=== PATIENT | female | born 1970 | race Caucasian/White ===

== ENCOUNTER → 2017-06-23 | Outpatient (CLI) | payer OTHER | LOC: FIMAGING 16:25 | PROVIDERS: ATTEND Registered Nurse | DX: M54.9 Dorsalgia, unspecified (principal); R50.9 Fever, unspecified; Z90.49 Acquired absence of other specified parts of digestive tract ==

== ENCOUNTER 2018-01-01 11:29 | Emergency (ER) | payer MEDICAID ==
[2018-01-01 11:53] VITALS: RESP 16; O2SAT 98
[2018-01-01] MEDS ORDERED: HYDROCOD/APAP 5/325 PREPACK#6 BTL TAKEHOME ONE (13:21)
--- NOTE | 2018-01-01 13:24 | EDPHY ---
H & P Stated Complaint: RIGHT SIDED FACIAL SWELLING AND HEARING LOSS Time Seen by Provider: 01/01/18 13:10 HPI/ROS: CHIEF COMPLAINT: Left jaw pain HISTORY OF PRESENT ILLNESS: The patient is a 47-year-old female who presented yesterday to the Urgent Care complaining of left-sided jaw and ear pain and swelling. She was diagnosed with mastoiditis and cerumen impaction. She did not have any type of otitis media or otitis externa. She did not have any imaging. She was given a dose of Rocephin and then a prescription for Augmentin. She states that the swelling has significantly improved today but that she is still having pain. She took ibuprofen this morning without relief. No nausea vomiting. No headache. No fever. No no dental infection. No trauma. REVIEW OF SYSTEMS: Constitutional: denies: chills, fever, recent illness, recent injury EENTM: See HPI denies: blurred vision, double vision, nose congestion Respiratory: denies: cough, shortness of breath Cardiac: denies: chest pain, irregular heart rate, lightheadedness, palpitations Gastrointestinal/Abdominal: denies: abdominal pain, diarrhea, nausea, vomiting, blood streaked stools Genitourinary: denies: dysuria, frequency, hematuria, pain Musculoskeletal: denies: joint pain, muscle pain Skin: denies: lesions, rash, jaundice, bruising Neurological: denies: headache, numbness, paresthesia, tingling, dizziness, weakness Hematologic/Lymphatic: denies: blood clots, easy bleeding, easy bruising Immunologic/allergic: denies: HIV/AIDS, transplant EXAM: GENERAL: Well-appearing, well-nourished and in no acute distress. HEAD: Atraumatic, normocephalic. EYES: Pupils equal round and reactive to light, extraocular movements intact, sclera anicteric, conjunctiva are normal. ENT: Pain to left parietal gland region, no obvious swelling or erythema. No obvious dental abnormalities. TMs normal, nares patent, oropharynx clear without exudates. Moist mucous membranes. NECK: Normal range of motion, supple without lymphadenopathy or JVD. LUNGS: Breath sounds clear to auscultation bilaterally and equal. No wheezes rales or rhonchi. HEART: Regular rate and rhythm without murmurs, rubs or gallops. ABDOMEN: Soft, nontender, normoactive bowel sounds. No guarding, no rebound. No masses appreciated. BACK: No CVA tenderness, no spinal tenderness, step-offs or deformities EXTREMITIES: Normal range of motion, no pitting or edema. No clubbing or cyanosis. NEUROLOGICAL: Cranial nerves II through XII grossly intact. Normal speech, normal gait. 5/5 strength, normal movement in all extremities, normal sensation PSYCH: Normal mood, normal affect. SKIN: Warm, dry, normal turgor, no visible rashes or lesions. Source: Patient Exam Limitations: No limitations - Personal History LMP (Females 10-55): Unknown Current Tetanus/Diphtheria Vaccine: Yes Current Tetanus Diphtheria and Acellular Pertussis (TDAP): Yes - Medical/Surgical History Hx Asthma: No Hx Chronic Respiratory Disease: No Hx Diabetes: No Hx Cardiac Disease: No Hx Renal Disease: No Hx Cirrhosis: No Hx Alcoholism: No Hx HIV/AIDS: No Hx Splenectomy or Spleen Trauma: No Other PMH: HEP C - Family History Significant Family History: No pertinent family hx - Social History Smoking Status: Never smoked Alcohol Use: Sober Drug Use: None Constitutional: Initial Vital Signs Temperature (C) 36.9 C 01/01/18 11:51 Heart Rate 72 01/01/18 11:51 Respiratory Rate 16 01/01/18 11:51 Blood Pressure 147/93 H 01/01/18 11:51 O2 Sat (%) 98 01/01/18 11:51 O2 Delivery Mode Room Air Allergies/Adverse Reactions: Sulfa (Sulfonamide Antibiotics) Allergy (Intermediate, Verified 02/26/10 20:17) Hives hydromorphone [Hydromorphone] Adverse Reaction (Severe, Verified 02/28/10 14:11) Itching Home Medications: Medication Instructions Recorded Flexeril 10 MG (*) 01/01/18 Medical Decision Making ED Course/Re-evaluation: The patient is well-appearing and is here complaining about pain. She has not had a fever. Her symptoms overall have improved since yesterday. I somewhat doubt the diagnosis of mastoiditis. She does not have any bony pain behind her ear and no sign of ear infection. I did offer to perform CT scan to evaluate further . She declines this. I suspect that she more has a parotiditis or parotid duct stone that has now cleared. Overall her symptoms have improved. She is asking for better pain control. I will prescribe Vicodin. She complains of aches and pains in her joints. She may have some degree of serum sickness. We agreed to follow up in 24 hr for re-evaluation. Differential Diagnosis: Partial list of the Differential diagnosis considered include but were not limited to; parotiditis, parotid duct stone, serum sickness and although unlikely based on the history and physical exam, I also considered mastoiditis, abscess, sepsis, meningitis. I discussed these differential diagnoses and the plan with the patient as well as the usual and expected course. The patient understands that the diagnosis is provisional and that in medicine we are not always correct and that further workup is often warranted. Usual and customary warnings were given. All of the patient's questions were answered. The patient was instructed to return to the emergency department should the symptoms at all worsen or return, otherwise to followup with the physician as we discussed. - Data Points Medications Given: Discontinued Medications Hydrocodone Bitart/Acetaminophen ([place] 5/325mg Prepack#6) 1 btl TAKEJOSEE EDNOW ONE Stop: 01/01/18 13:22 Last Admin: 01/01/18 13:49 Dose: 1 btl Departure - Departure Disposition: Home, Routine, Self-Care Clinical Impression: Acute parotitis Condition: Fair Instructions: Hydrocodone/Acetaminophen (By mouth) Referrals: NONE *PRIMARY CARE P,. [Primary Care Provider] - 1 day without fail ED,PHYSICIAN ONDUTY [Medical Doctor] - 1 day, if not improved
[2018-01-01 13:51] VITALS: BP 137/96; PULSE 62; TEMP 98.2
== END 2018-01-01 13:50 | disposition home or self-care (01) ==
DX: K11.21 Acute sialoadenitis (principal)

== ENCOUNTER 2019-02-17 19:35 | Inpatient (IN) | payer MEDICAID ==
--- NOTE | 2019-02-17 19:40 | EDPHY ---
H & P Time Seen by Provider: 02/17/19 19:39 HPI/ROS: CHIEF COMPLAINT: Right upper quadrant and epigastric pain HISTORY OF PRESENT ILLNESS: The patient presents the ED with complaints of severe right upper quadrant epigastric pain. The patient has a history of fibromyalgia and takes gabapentin and Cymbalta at baseline. She denies prior history of abdominal pain associated with her fibromyalgia. The patient does have a history of cholecystectomy secondary to biliary dyskinesia in 2009. The patient also underwent an appendectomy at that point time. The patient does report associated nausea and multiple episodes of vomiting. The patient denies hematuria or dysuria. She has no complaints of lower abdominal pain. Patient does have a history of hepatitis C. She does report that she has had fairly stable liver function tests. REVIEW OF SYSTEMS: A comprehensive 10 point review of systems is otherwise negative aside from elements mentioned in the history of present illness. Source: Patient Exam Limitations: No limitations - Medical/Surgical History Hx Asthma: No Hx Chronic Respiratory Disease: No Hx Diabetes: No Hx Cardiac Disease: No Hx Renal Disease: No Hx Cirrhosis: No Hx Alcoholism: No Hx HIV/AIDS: No Hx Splenectomy or Spleen Trauma: No Other PMH: HEP C, prior cholecystectomy, fibromyalgia - Family History Significant Family History: No pertinent family hx - Social History Smoking Status: Never smoked - Physical Exam Exam: General Appearance: Slightly obese female, appears uncomfortable Eyes: Pupils equal and round no pallor or injection ENT, Mouth: Mucous membranes moist Respiratory: There are no retractions, lungs are clear to auscultation Cardiovascular: Regular rate and rhythm Gastrointestinal: Marked tenderness to palpation in the epigastrium and right upper quadrant, Neurological: A&O, normal motor function, normal sensory exam, normal cranial nerves Skin: Warm and dry, no rashes Musculoskeletal: Neck is supple nontender Extremities: symmetrical, full range of motion Psychiatric: Patient is oriented X 3, there is no agitation Constitutional: Initial Vital Signs Temperature (C) 37.2 C 02/17/19 19:40 Heart Rate 102 H 02/17/19 19:40 Respiratory Rate 20 02/17/19 19:40 Blood Pressure 152/108 H 02/17/19 19:40 O2 Sat (%) 100 02/17/19 19:40 O2 Delivery Mode Nasal Cannula O2 (L/minute) 2 Allergies/Adverse Reactions: Sulfa (Sulfonamide Antibiotics) Allergy (Intermediate, Verified 02/17/19 19:43) Hives hydromorphone [Hydromorphone] Adverse Reaction (Severe, Verified 02/17/19 19:43) Itching Home Medications: Medication Instructions Recorded DULoxetine [Cymbalta 20 MG (RX)] 20 mg PO DAILY@07 02/17/19 Gabapentin [Neurontin 300 MG (*)] 300 mg PO DAILY@1900 02/17/19 Medical Decision Making - Diagnostics Imaging Results: Imaging Impressions Abdomen CT 02/17/19 19:55 Impression: Possible early ascending colonic obstruction related to either a kink or adhesion. Doubt twist or mass. A transition point is on axial image 133 series 4 , sagittal reconstruction image 157 and coronal reconstruction image 64. Results discussed with Dr. Dao Roldan at 8:43 PM. General information for patients regarding this examination can be found at [email or web address]. If you have questions or comments about this report, please contact me at (hospital) or [phone] (cell). ED Course/Re-evaluation: The patient presents the ED with acute abdominal pain, nausea and vomiting. The patient's symptoms began earlier today. Prior surgical history is no worthy for appendectomy and cholecystectomy. The patient was noted to have marked tenderness to palpation in the right upper quadrant epigastrium. The patient had an IV established. I verified a normal creatinine in ordered a stat CT scan of the abdomen pelvis which demonstrates large bowel obstruction with a transition point in the right upper quadrant. I re-evaluated the patient again at 9:00 p.m. and she is still quite tender to palpation. Consultation is made with Dr. uLis Damico from General surgery who will evaluate the patient in the emergency department to determine next steps in the patient's workup. Dr. Damico questions whether the patient's presentation may be from colitis. His plan will be to start antibiotics this evening and follow her exam. She will be admitted to his service this evening. Differential Diagnosis: Differential diagnosis considered includes bowel obstruction, choledocholithiasis, pancreatitis, nephrolithiasis, peptic ulcer disease - Data Points Laboratory Results: Laboratory Results 02/17/19 19:48 02/17/19 19:48 02/17/19 02/17/19 02/17/19 19:51 19:48 19:48 WBC RBC Hgb POC Hgb 16.0 gm/dL gm/dL (12.6-16.3) Hct POC Hct 47 % % (38-47) MCV MCH MCHC RDW Plt Count MPV Neut % (Auto) Lymph % (Auto) [place] % (Auto) Eos % (Auto) Baso % (Auto) Nucleat RBC Rel Count Absolute Neuts (auto) Absolute Lymphs (auto) Absolute Monos (auto) Absolute Eos (auto) Absolute Basos (auto) Absolute Nucleated RBC Immature Gran % Immature Gran # POC Sodium 140 mEq/L mEq/L (135-145) Sodium 134 mEq/L L mEq/L (135-145) POC Potassium 3.7 mEq/L mEq/L (3.3-5.0) Potassium 4.1 mEq/L mEq/L (3.5-5.2) POC Chloride 103 mEq/L mEq/L (97-110) Chloride 103 mEq/L mEq/L (97-110) Carbon Dioxide 20 mEq/l L mEq/l (22-31) POC Total CO2 19 mEq/L L mEq/L (22-31) Anion Gap 11 mEq/L mEq/L (6-14) POC BUN 12 mg/dL mg/dL (7-23) BUN 13 mg/dL mg/dL (7-23) Creatinine 1.0 mg/dL mg/dL (0.6-1.0) POC Creatinine 1.0 mg/dL mg/dL (0.6-1.0) Estimated GFR 59 Glucose 116 mg/dL H mg/dL (70-100) POC Glucose 117 mg/dL H mg/dL (70-100) Calcium 9.9 mg/dL mg/dL (8.5-10.4) Total Bilirubin 0.7 mg/dL mg/dL (0.1-1.4) Conjugated Bilirubin 0.3 mg/dL mg/dL (0.0-0.5) Unconjugated Bilirubin 0.4 mg/dL mg/dL (0.0-1.1) AST 24 IU/L IU/L (14-46) ALT 41 IU/L IU/L (9-52) Alkaline Phosphatase 65 IU/L IU/L (38-126) Total Protein 7.6 g/dL g/dL (6.3-8.2) Albumin 4.5 g/dL g/dL (3.5-5.0) Lipase 124 IU/L IU/L (23-300) Beta HCG, Qual NEGATIVE 02/17/19 19:48 WBC 13.43 10^3/uL H 10^3/uL (3.80-9.50) RBC 5.18 10^6/uL 10^6/uL (4.18-5.33) Hgb 15.6 g/dL g/dL (12.6-16.3) POC Hgb Hct 44.5 % % (38.0-47.0) POC Hct MCV 85.9 fL fL (81.5-99.8) MCH 30.1 pg pg (27.9-34.1) MCHC 35.1 g/dL g/dL (32.4-36.7) RDW 12.1 % % (11.5-15.2) Plt Count 268 10^3/uL 10^3/uL (150-400) MPV 10.3 fL fL (8.7-11.7) Neut % (Auto) 87.7 % H % (39.3-74.2) Lymph % (Auto) 7.9 % L % (15.0-45.0) [place] % (Auto) 3.0 % L % (4.5-13.0) Eos % (Auto) 0.9 % % (0.6-7.6) Baso % (Auto) 0.3 % % (0.3-1.7) Nucleat RBC Rel Count 0.0 % % (0.0-0.2) Absolute Neuts (auto) 11.78 10^3/uL H 10^3/uL (1.70-6.50) Absolute Lymphs (auto) 1.06 10^3/uL 10^3/uL (1.00-3.00) Absolute Monos (auto) 0.40 10^3/uL 10^3/uL (0.30-0.80) Absolute Eos (auto) 0.12 10^3/uL 10^3/uL (0.03-0.40) Absolute Basos (auto) 0.04 10^3/uL 10^3/uL (0.02-0.10) Absolute Nucleated RBC 0.00 10^3/uL 10^3/uL (0-0.01) Immature Gran % 0.2 % % (0.0-1.1) Immature Gran # 0.03 10^3/uL 10^3/uL (0.00-0.10) POC Sodium Sodium POC Potassium Potassium POC Chloride Chloride Carbon Dioxide POC Total CO2 Anion Gap POC BUN BUN Creatinine POC Creatinine Estimated GFR Glucose POC Glucose Calcium Total Bilirubin Conjugated Bilirubin Unconjugated Bilirubin AST ALT Alkaline Phosphatase Total Protein Albumin Lipase Beta HCG, Qual Medications Given: Discontinued Medications Fentanyl (Sublimaze) 100 mcg IVP EDNOW ONE Stop: 02/17/19 19:44 Last Admin: 02/17/19 19:50 Dose: 100 mcg Sodium Chloride (Ns) 1,000 mls @ 0 mls/hr IV EDNOW ONE; Wide Open PRN Reason: Protocol Stop: 02/17/19 19:44 Last Admin: 02/17/19 19:50 Dose: 1,000 mls Ondansetron HCl (Zofran) 4 mg IVP EDNOW ONE Stop: 02/17/19 19:44 Last Admin: 02/17/19 19:50 Dose: 4 mg Point of Care Test Results: Chemistry 02/17/19 19:51 POC Sodium 140 mEq/L mEq/L (135-145) POC Potassium 3.7 mEq/L mEq/L (3.3-5.0) POC Chloride 103 mEq/L mEq/L (97-110) POC Total CO2 19 mEq/L L mEq/L (22-31) POC BUN 12 mg/dL mg/dL (7-23) POC Creatinine 1.0 mg/dL mg/dL (0.6-1.0) POC Glucose 117 mg/dL H mg/dL (70-100) ISTAT H&H 02/17/19 19:51 POC Hgb 16.0 gm/dL gm/dL (12.6-16.3) POC Hct 47 % % (38-47) Departure - Departure Disposition: [facility] Clinical Impression: Colitis Condition: Fair
[2019-02-17] MEDS ORDERED: NS 1,000 ML IV ONE (19:43)
[2019-02-17] MEDS ORDERED: fentaNYL 100 MCG/2 ML INJ IVP ONE (19:43)
[2019-02-17] MEDS ORDERED: ONDANSETRON 4 MG/2 ML VIAL IVP ONE (19:43)
[2019-02-17] MEDS ORDERED: IOPAMIDOL (ISOVUE-300) 100 ML BTL ONE (19:58)
[2019-02-17 19:59] LABS: PLATELET COUNT 268 10^3/uL (150-400)
[2019-02-17] MEDS ORDERED: PROMETHAZINE HCL 25 MG/ML INJ IVP PRN (21:29)
[2019-02-17] MEDS ORDERED: ONDANSETRON 4 MG/2 ML VIAL IVP PRN (21:29)
--- NOTE | 2019-02-17 21:49 | PDGENHP ---
History and Physical - Chief Complaint abdominal pain, nausea, vomiting, diarrhea - History of Present Illness Otherwise helthy 48yo F presents with acute onset RUQ pain. Briefly, patient was feeling well until earlier today began to have progressive nausea, vomiting and diarrhea. This persisted and she began to have worsening RUQ pain. Pain is described as burning and radiating to her R shoulder. Rated as 8/10 in intensity at its worst. Has never had pain like this previously. History Information - Allergies/Home Medication List Allergies/Adverse Reactions: Sulfa (Sulfonamide Antibiotics) Allergy (Intermediate, Verified 02/17/19 19:43) Hives hydromorphone [Hydromorphone] Adverse Reaction (Severe, Verified 02/17/19 19:43) Itching Home Medications: DULoxetine [Cymbalta 20 MG (RX)] 20 mg PO DAILY@07 02/17/19 [Last Taken 02/17/19 ] Gabapentin [Neurontin 300 MG (*)] 300 mg PO DAILY@1900 02/17/19 [Last Taken ] I have personally reviewed and updated: family history, medical history, social history, surgical history Past Medical History: fibromyalgia, hepatitis C - Surgical History Reports: appendectomy, cholecystectomy Additional surgical history: tubal ligation - Family History Additional family history: no Hx of colon ca or IBD - Social History Smoking Status: Never smoked Review of Systems Review of Systems: ROS: 10pt was reviewed & negative except for what was stated in HPI & below Physical Exam Physical Exam: Temp Pulse Resp BP Pulse Ox 37.2 C 88 18 134/89 H 99 02/17/19 19:40 02/17/19 20:00 02/17/19 20:00 02/17/19 20:00 02/17/19 20:00 Constitutional: no apparent distress, appears nourished, not in pain, uncomfortable Eyes: PERRL, anicteric sclera, EOMI Ears, Nose, Mouth, Throat: moist mucous membranes, hearing normal, ears appear normal, no oral mucosal ulcers Cardiovascular: regular rate and rhythym, no murmur, rub, or gallop, No edema Respiratory: no respiratory distress, no rales or rhonchi, clear to auscultation Gastrointestinal: normoactive bowel sounds, no palpable masses, other (TTP in RUQ, non-peritoneal) Genitourinary: no bladder fullness, no bladder tenderness Skin: warm, normal color, no rashes or abrasions, no fluctuance, no induration, No mottled Musculoskeletal: full muscle strength, no muscle tenderness, normal joint ROM, no joint effusions Psychiatric: interacting appropriately, not anxious, not encephalopathic, thought process linear Lymph, Heme, Immunologic: no cervical LAD, no supraclavicular LAD Lab Data & Imaging Review 02/17/19 19:48 02/17/19 19:48 WBC 13.43 10^3/uL (3.80-9.50) H 02/17/19 19:48 RBC 5.18 10^6/uL (4.18-5.33) 02/17/19 19:48 Hgb 15.6 g/dL (12.6-16.3) 02/17/19 19:48 POC Hgb 16.0 gm/dL (12.6-16.3) 02/17/19 19:51 Hct 44.5 % (38.0-47.0) 02/17/19 19:48 POC Hct 47 % (38-47) 02/17/19 19:51 MCV 85.9 fL (81.5-99.8) 02/17/19 19:48 MCH 30.1 pg (27.9-34.1) 02/17/19 19:48 MCHC 35.1 g/dL (32.4-36.7) 02/17/19 19:48 RDW 12.1 % (11.5-15.2) 02/17/19 19:48 Plt Count 268 10^3/uL (150-400) 02/17/19 19:48 MPV 10.3 fL (8.7-11.7) 02/17/19 19:48 Neut % (Auto) 87.7 % (39.3-74.2) H 02/17/19 19:48 Lymph % (Auto) 7.9 % (15.0-45.0) L 02/17/19 19:48 [place] % (Auto) 3.0 % (4.5-13.0) L 02/17/19 19:48 Eos % (Auto) 0.9 % (0.6-7.6) 02/17/19 19:48 Baso % (Auto) 0.3 % (0.3-1.7) 02/17/19 19:48 Nucleat RBC Rel Count 0.0 % (0.0-0.2) 02/17/19 19:48 Absolute Neuts (auto) 11.78 10^3/uL (1.70-6.50) H 02/17/19 19:48 Absolute Lymphs (auto) 1.06 10^3/uL (1.00-3.00) 02/17/19 19:48 Absolute Monos (auto) 0.40 10^3/uL (0.30-0.80) 02/17/19 19:48 Absolute Eos (auto) 0.12 10^3/uL (0.03-0.40) 02/17/19 19:48 Absolute Basos (auto) 0.04 10^3/uL (0.02-0.10) 02/17/19 19:48 Absolute Nucleated RBC 0.00 10^3/uL (0-0.01) 02/17/19 19:48 Immature Gran % 0.2 % (0.0-1.1) 02/17/19 19:48 Immature Gran # 0.03 10^3/uL (0.00-0.10) 02/17/19 19:48 POC Sodium 140 mEq/L (135-145) 02/17/19 19:51 Sodium 134 mEq/L (135-145) L 02/17/19 19:48 POC Potassium 3.7 mEq/L (3.3-5.0) 02/17/19 19:51 Potassium 4.1 mEq/L (3.5-5.2) 02/17/19 19:48 POC Chloride 103 mEq/L (97-110) 02/17/19 19:51 Chloride 103 mEq/L (97-110) 02/17/19 19:48 Carbon Dioxide 20 mEq/l (22-31) L 02/17/19 19:48 POC Total CO2 19 mEq/L (22-31) L 02/17/19 19:51 Anion Gap 11 mEq/L (6-14) 02/17/19 19:48 POC BUN 12 mg/dL (7-23) 02/17/19 19:51 BUN 13 mg/dL (7-23) 02/17/19 19:48 Creatinine 1.0 mg/dL (0.6-1.0) 02/17/19 19:48 POC Creatinine 1.0 mg/dL (0.6-1.0) 02/17/19 19:51 Estimated GFR 59 02/17/19 19:48 Glucose 116 mg/dL (70-100) H 02/17/19 19:48 POC Glucose 117 mg/dL (70-100) H 02/17/19 19:51 Calcium 9.9 mg/dL (8.5-10.4) 02/17/19 19:48 Total Bilirubin 0.7 mg/dL (0.1-1.4) 02/17/19 19:48 Conjugated Bilirubin 0.3 mg/dL (0.0-0.5) 02/17/19 19:48 Unconjugated Bilirubin 0.4 mg/dL (0.0-1.1) 02/17/19 19:48 AST 24 IU/L (14-46) 02/17/19 19:48 ALT 41 IU/L (9-52) 02/17/19 19:48 Alkaline Phosphatase 65 IU/L (38-126) 02/17/19 19:48 Total Protein 7.6 g/dL (6.3-8.2) 02/17/19 19:48 Albumin 4.5 g/dL (3.5-5.0) 02/17/19 19:48 Lipase 124 IU/L (23-300) 02/17/19 19:48 Beta HCG, Qual NEGATIVE 02/17/19 19:48 Visualized and Interpreted imaging results: Yes Interpretation: CT: some stranding adjacent to colon in RUQ, abrupt transition with secondary obstruction. No mass. Assessment & Plan Assessment: Colitis (Acute) Plan: 48yo F c acute colonic obstruction - unclear process, clearly does not have large mass causing obstruction which would make me more worried for Ca, although this is still high on differential - Given the fact that she has had pretty bad diarrhea, will plan to treat empirically overnight with IV abx and hydration. Ideally, her pain would improve to the point where she could get c-scope. If pain worsens then would plan for surgery and likely colectomy. Discussed this with patient and , they understand and wish to proceed with above plan
[2019-02-17] MEDS: NS 1,000 ML IV SCH (23:40)
[2019-02-18] MEDS: KETOROLAC 30 MG/1 ML SDV IVP PRN ×3 (02:45→16:23)
[2019-02-18 05:23] LABS: PLATELET COUNT 202 10^3/uL (150-400)
[2019-02-18] MEDS: NS 1,000 ML IV SCH (08:47)
[2019-02-18] MEDS: ONDANSETRON DISINTEGRATING 4 MG TAB PO PRN ×3 (10:06→23:15)
[2019-02-18] MEDS: ACETAMINOPHEN 325 MG TAB PO PRN ×2 (10:06→16:22)
--- NOTE | 2019-02-18 14:48 | SOAPPROG ---
SOAP Progress Note Assessment/Plan: Assessment: 48yo F c R LBO 2/2 unclear etiology - VSS, HDS - labs normalized this AM - still pinpoint tender in RUQ, improved. No rebound or guarding - GI consult, likely c-scope - stop abx, unclear whether or not infectious Plan: 02/18/19 14:47 Subjective: pain better, still doesnt feel great Objective: Vital Signs Temp Pulse Resp BP Pulse Ox 36.7 C 68 16 126/87 H 96 02/18/19 11:51 02/18/19 11:51 02/18/19 11:51 02/18/19 11:51 02/18/19 11:51 Laboratory Results 02/18/19 05:10 02/18/19 05:10 02/17/19 02/18/19 02/19/19 05:59 05:59 05:59 Intake Total 1980 Output Total 300 Balance 1980 - ICD10 Worksheet Patient Problems: Problems Problem Status Onset Colitis Acute
--- NOTE | 2019-02-18 14:57 | GCON ---
[f rep st] CONSULTATION GI INPATIENT CONSULTATION DATE OF CONSULTATION: 02/18/2019 I was kindly requested to see the patient by Dr. Luis Damico in consultation for a chief complaint of digestive symptoms. She is a 48-year-old white female who developed acute right flank, axillary, and upper quadrant pain. This was associated with nausea, vomiting, and diarrhea. The pain can radiate to her right shoulder. She describes it as "8/10" in intensity. She denies chronic trouble with pain. She is s/p brigida. Today, the pain is better but still fairly significant. She also has nausea. She denies diarrhea, vomiting, bloating, gas. PAST MEDICAL HISTORY: 1. As above. 2. Cholecystectomy. 3. Appendectomy. 4. BTL. 5. Fibromyalgia. 6. Otherwise, noncontributory. ALLERGIES: Include sulfa and hydromorphone. OUTPATIENT MEDICATIONS: Include Cymbalta and Neurontin. INPATIENT MEDICATIONS: Include ceftriaxone, Flagyl, IV fluids. SOCIAL HISTORY: She states she never smoked. FAMILY HISTORY: Negative for similar pain. REVIEW OF SYSTEMS: Positive pertinent review of systems as per my HPI. Otherwise, complete review of systems is negative. PHYSICAL EXAM: CONSTITUTIONAL: Nontoxic appearing. VITAL SIGNS: Stable. SKIN: Warm, dry. EYES: Pupils equal, round, reactive to light and accommodation. EARS, NOSE, MOUTH, AND THROAT: Oropharynx without masses, moist mucosa. CARDIOVASCULAR: Normal S2, normal PMI. RESPIRATORY: Lungs clear to auscultation and percussion anteriorly. GASTROINTESTINAL: Very focal pain in the right lower axillary area with just 1 fingertip with barely any compression. Otherwise, some right upper and mid quadrant abdominal tenderness on exam but relatively mild. Profuse abdomen. NEUROLOGIC: Grossly nonfocal, the cranial nerves grossly intact. PSYCHIATRIC: Orientation, insight appropriate. MUSCULOSKELETAL: Strength grossly normal throughout, normal station. LABORATORIES: Include initial white count of 13,000, now 8000. Normal basic metabolic panel. Normal liver function test. Beta hCG negative. CT scan of the abdomen and pelvis with IV contrast shows possible early ascending colon obstructive area, possibly due to a kink, adhesions, etc. ASSESSMENT: 1. Very focal, superficial right lower axillary pain. Suspect this is musculoskeletal. This could be from her fibromyalgia. 2. More acute symptoms of right-sided abdominal pain with nausea, vomiting, diarrhea. Overall, this might just represent a viral gastroenteritis, especially with its acute nature. However, the CT scan does show possibly an abnormality in the ascending colon with some upstream possible obstructive findings. This certainly could be a false-positive, but an ascending colon cancer, stricture, large polyp, etc., are possible. PLAN: 1. Clear liquids, then n.p.o. after midnight except meds, sips of water. 2. We will prep the patient. 3. Colonoscopy tomorrow. 4. We will stop her antibiotics, as I do not suspect this is a bacterial infectious process. 5. However, we will check a clean-catch urinalysis to make sure no atypical UTI. Thank you for allowing me to help in the management of this patient. The case was discussed with Dr. Damico. Copy requested to: FIDENCIO Kang /[id number]/MODL [id number]
--- NOTE | 2019-02-18 15:19 | ASMTCMCOM ---
CM Note CM Note Notes: Reviewed chart, pt admitted for abdominal pain. May have C scope tomorrow. Normally independent and lives with , no therapies ordered. Anticipate she will dc home with support of when medically stable. CM available for any changes. DC Plan: Independent Date Signed: 02/18/2019 03:18 PM Electronically Signed By:Nayana Costa RN
[2019-02-18] MEDS: D5W 1/2 NS W/ 20 KCl/L 1,000 ML IV SCH (16:23)
[2019-02-18] MEDS: LORazepam 2 MG/ML INJ IVP PRN (16:36)
[2019-02-18] MEDS ORDERED: PEG 3350/NA SULF,BICARB,CL/KCL (GAVILYTE-G) 4000 ML BTL PO ONE (18:00)
--- NOTE | 2019-02-18 18:32 | PDMN ---
Medical Necessity Medical necessity: Change to IP, as of 02/18/19, per & MCG M-05; los > 2mn for ongoing management of persistent 8/10 abdominal pain w/nausea; requiring further workup/monitoring & GI consult w/colonoscopy
[2019-02-19] MEDS: D5W 1/2 NS W/ 20 KCl/L 1,000 ML IV SCH (03:07)
[2019-02-19] MEDS ORDERED: fentaNYL 100 MCG/2 ML INJ ONE (10:04)
[2019-02-19] MEDS ORDERED: MIDAZOLAM 2 MG/2 ML VIAL ONE ×2 (10:05→10:30)
--- NOTE | 2019-02-19 11:14 | GIREPORT ---
[facility] - [facility]oscopy Department Patient Name: Korin Lazaro Procedure Date: 02/19/2019 10:04 AM Patient Type: Inpatient Attending MD/ ER Physician: Jayme Jacobson MD Procedure: Colonoscopy Indications: Abdominal pain in the right upper quadrant, Abnormal CT of the GI tract Providers: Jayme Jacobson MD Referring MD: MD Luis Cole MD Medicines: Fentanyl 125 micrograms IV, Midazolam 7 mg IV Complications: No immediate complications. Description of Procedure: After obtaining informed consent, the scope was passed under direct vis ion. Throughout the procedure, the patient's blood pressure, pulse, and oxyg en saturations were monitored continuously. The Colonoscope with irrigatio n channel was introduced through the anus and advanced to the terminal il eum, with identification of the appendiceal orifice and IC valve. The colono scopy was performed without difficulty. The patient tolerated the procedure w ell. The quality of the bowel preparation was good. Findings: The digital rectal exam was normal. The terminal ileum appeared normal. The entire examined colon appeared normal. Estimated Blood Loss: Estimated blood loss: none. Post Op Diagnosis: - The examined portion of the ileum was normal. - The entire examined colon is normal. - No specimens collected. Recommendation: - [facility]. - Resume regular diet. - Repeat colonoscopy in 10 years for screening purposes. - Thank you for allowing me to help in your patient's care. Do not hesi hoang to call with any questions. Attending Participation: I personally performed the entire procedure. Kavon Stroud M.D Jayme Jacobson MD 02/19/2019 11:13:51 AM This report has been signed electronicallyMatthew MD Kavon Number of Addenda: 0 Note Initiated On: 02/19/2019 10:04 AM Total Procedure Duration Time 0 hours 19 minutes 47 seconds [email or web address]
--- NOTE | 2019-02-19 12:58 | SOAPPROG ---
SOAP Progress Note Assessment/Plan: Assessment: 48yo F c R LBO 2/2 unclear etiology - VSS, HDS -still having right upper quadrant pain albeit improved. - colonoscopy today showed virtually normal colon without any concern for mass or infectious process - I have consulted the Hospital Medicine to evaluate the patient, I do not think she has a surgical problem at this point time and welcome their input as to any other possible process going on. - regular diet Plan: 02/18/19 14:47 02/19/19 12:57 Subjective: Pain is better but persists Objective: Vital Signs Temp Pulse Resp BP Pulse Ox 36.3 C 49 L 16 161/98 H 100 02/19/19 11:57 02/19/19 11:57 02/19/19 11:57 02/19/19 11:57 02/19/19 11:57 02/18/19 02/19/19 02/20/19 05:59 05:59 05:59 Intake Total 250 100 Balance 250 100 ICD10 Worksheet Patient Problems: Problems Problem Status Onset Colitis Acute
[2019-02-19] MEDS: LORazepam 2 MG/ML INJ IVP PRN (14:13)
[2019-02-19] MEDS: KETOROLAC 30 MG/1 ML SDV IVP PRN (14:16)
[2019-02-19] MEDS ORDERED: HYOSCYAMINE SULFATE 0.125 MG TAB PO ONE (17:16)
[2019-02-19] MEDS ORDERED: LIDOCAINE 2% VISCOUS 15 ML UDCUP PO ONE (17:16)
[2019-02-19] MEDS ORDERED: MAG HYDROX/AL HYDROX/SIMETH 30 ML UDCUP PO ONE (17:16)
--- NOTE | 2019-02-19 18:40 | GCON ---
[f rep st] CONSULTATION DATE OF CONSULTATION: 02/19/2019 REFERRING PHYSICIAN: Luis Damico MD REASON FOR CONSULTATION: Epigastric pain, right flank pain. HISTORY OF PRESENT ILLNESS: A 48-year-old female with celiac disease, fibromyalgia, obesity, who presented 02/17 with acute onset of right upper quadrant pain. She said she had felt off the day prior. She was lying down when this pain came on. It wrapped around to her back, sharp in nature. She described it as burning and radiating to her right shoulder. Has never had pain like this before. She did endorse nausea and diarrhea. Nonbloody. CT abdomen showed stranding adjacent to the colon and the right upper quadrant with an abrupt transition, with secondary obstruction, but no mass. There was concern for a malignancy. She underwent colonoscopy which was negative for mass. She was treated initially with antibiotics for colitis. She is not currently having diarrhea. No recent antibiotics. She has been traveling a lot with her daughter who is a gymnast; thus has been eating out, which is not her norm. Most recently, she was in [place] for 5 days and felt bad after eating a greasy burger at the airport. No travel outside the [place] She recently had a flare of her fibromyalgia and thus not sleeping. Thus, she has been taking 2 Advil PMs every other night for the past 8 weeks. She exercises mainly with yoga and does experience some shortness of breath if it is an intense or prolonged class. Recently, she went on a 30 minute walk with her and noted substernal chest pressure that did not radiate, with no associated nausea, vomiting, or diaphoresis. This was relieved with rest. Both her mother and father had MIs. REVIEW OF SYSTEMS: I completed a 10-point review of systems, negative except as noted in HPI. PAST MEDICAL HISTORY: Celiac disease, fibromyalgia, history of hepatitis C, not treated, borderline hypertension, obesity. PAST SURGICAL HISTORY: Cholecystectomy, appendectomy. FAMILY HISTORY: Paternal grandfather with diabetes. Mother, RI. Father RI. SOCIAL HISTORY: She lives with her . She has 2 daughters and a son. Lives here in [place]. No tobacco, alcohol, or illicits. She is a policy writer. HOME MEDICATIONS: Gabapentin 300 mg daily, Cymbalta 20 mg daily. ALLERGIES: Dilaudid, sulfa. PHYSICAL EXAMINATION: Vital Signs: Temperature 36.7, blood pressure is 141/91 , heart rates in the 70s, respirations 16, 97% on room air. General: Obese, lying in bed, tired appearing, but no acute distress. HEENT: PERRLA. Moist mucous membranes. CV: Regular rate and rhythm. Lungs: Clear. Abdomen: Significant epigastric tenderness. No rebound or guarding. Positive bowel sounds. : Right suprapubic and right CVA tenderness. Neuro: 2 through 12 intact. She is seeing double. This was after a dose of Ativan. Psych: Alert and oriented x 3. LAB: WBC initially 13, now 8, hemoglobin 13, hematocrit 39, platelets 202. Sodium 138, potassium 3.9, chloride 109, carbon dioxide 22, creatinine 0.9, glucose 114, calcium 8.7. LFTs negative. Lipase 124. TSH 0.458. Abdominal CT as stated in HPI. ASSESSMENT AND PLAN: 1. Abdominal pain: Concern for ulcer or gastritis given history of NSAIDs and epigastric pain on exam. We will trial a GI cocktail, IV PPI. I spoke with Dr. Jacobson who will perform EGD in the morning. NPO after midnight. 2. Pyuria. Only have a few whites and trace leukocyte esterase, however positive CVA and suprapubic tenderness. We will further evaluate with a urine culture. 3. Hypovolemic hyponatremia on admission. This has since resolved. 4. Diarrhea. No longer having. She has not been on any recent antibiotics. 5. Fibromyalgia. Resume home medications. 6. History of hepatitis C per her report. LFTs within normal here. 7. Shortness of breath/chest pain:intermittent, some with activity. Evaluate with troponin, EKG, D-dimer. Consider a stress test or echocardiogram. Check lipids. 8. Diet regular. NPO after midnight. 9. Deep vein thrombosis prophylaxis. Sequential compression devices. DISPOSITION: Thank you for this consultation. We will follow along. Please call if any questions. /[id number]/MODL MTDD
[2019-02-19] MEDS ORDERED: GABAPENTIN 300 MG CAP PO SCH (19:00)
[2019-02-19] MEDS: PANTOPRAZOLE SODIUM 40 MG VIAL IVP SCH (20:16)
[2019-02-19] MEDS ORDERED: IOPAMIDOL (ISOVUE 370) 100 ML BTL IV ONE (20:48)
[2019-02-20] MEDS ORDERED: DULoxetine 20 MG CAP PO SCH (07:00)
[2019-02-20] MEDS ORDERED: LIDOCAINE 2% 2 ML INJ ONE (10:26)
[2019-02-20] MEDS ORDERED: PROPOFOL/EMULSION 500 MG/50 ML BOTTLE IV ONE ×2 (10:26)
--- NOTE | 2019-02-20 10:46 | POSTANESTH ---
Post Anesthetic Evaluation Cardiovascular Status: Normal, Stable Respiratory Status: Normal, Stable Level of Consciousness/Mental Status: Can Participate in Eval Pain Control: Adequate, Prn Tx Ordered Nausea/Vomiting Control: Adequate, Prn Tx Ordered Complications Possibly Related to Anesthesia: None Noted
--- NOTE | 2019-02-20 10:46 | PDANEPAE ---
ANE Past Medical History - Cardiovascular History Hx Hypertension: Yes - Pulmonary History Hx Oxygen in Use at Home: No Hx Sleep Apnea: No Sleep Apnea Screening Result - Last Documented: Negative - Neurologic History Neurologic History Comment: Fibromylagia - Endocrine History Hx Diabetes: No Endocrine History Comment: Obesity - Renal History Hx Renal Disorders: No - Liver History Hx Hepatic Disorders: Yes - Neurological & Psychiatric Hx Hx Neurological and Psychiatric Disorders: Yes Neurological / Psychiatric History Comment: Fibromyalgia - GI History Hx Gastrointestinal Disorders: Yes Gastrointestinal History Comment: Abdominal Pain. - Chronic Pain History Chronic Pain: Yes (Fibromyalgia) ANE Review of Systems Review of Systems: ANE Patient History - Allergies Allergies/Adverse Reactions: hydromorphone [Hydromorphone] Allergy (Severe, Verified 02/17/19 21:56) Itching Sulfa (Sulfonamide Antibiotics) Allergy (Intermediate, Verified 02/17/19 19:43) Hives - Home Medications Home Medications: DULoxetine [Cymbalta 20 MG (RX)] 20 mg PO DAILY@07 02/17/19 [Last Taken 02/17/19 ] Gabapentin [Neurontin 300 MG (*)] 300 mg PO DAILY@1900 02/17/19 [Last Taken ] - NPO status NPO Since - Liquids (Date): 02/19/19 NPO Since - Liquids (Time): 00:00 NPO Since - Solids (Date): 02/17/19 NPO Since - Solids (Time): 00:00 - Smoking Hx Smoking Status: Never smoked ANE Labs/Vital Signs - Labs Result Diagrams: 02/18/19 05:10 02/18/19 05:10 - Vital Signs Blood Pressure: 169/101 Heart Rate: 63 Respiratory Rate: 20 O2 Sat (%): 95 Height: 160.02 cm Weight: 81.647 kg ANE Physical Exam - Airway Neck exam: FROM Mallampati Score: Class 2 Mouth exam: normal dental/mouth exam - Pulmonary Pulmonary: no respiratory distress, no rales or rhonchi, clear to auscultation - Cardiovascular Cardiovascular: regular rate and rhythym, no murmur, rub, or gallop - ASA Status ASA Status: II, E ANE Anesthesia Plan Anesthesia Plan: GA with mask Total IV Anesthesia: Yes
[2019-02-20] MEDS: PANTOPRAZOLE SODIUM 40 MG VIAL IVP SCH (10:47)
[2019-02-20] MEDS ORDERED: PROMETHAZINE HCL 25 MG/ML INJ IVP PRN (12:18)
[2019-02-20] MEDS ORDERED: NALOXONE HCL 0.4 MG/ML INJ IVP PRN (12:18)
[2019-02-20] MEDS ORDERED: ONDANSETRON 4 MG/2 ML VIAL IVP PRN (12:18)
[2019-02-20] MEDS ORDERED: METOCLOPRAMIDE 10 MG/2 ML VIAL IVP PRN (12:18)
[2019-02-20] MEDS ORDERED: fentaNYL 100 MCG/2 ML INJ IVP PRN (12:18)
[2019-02-20] MEDS ORDERED: DEXAMETHASONE 4 MG/ML VIAL IVP PRN (12:18)
--- NOTE | 2019-02-20 12:21 | GIREPORT ---
[facility] Surgical Services - Endoscopy Department Patient Name: Korin Lazaro Procedure Date: 02/20/2019 12:03 PM Patient Type: Inpatient Attending MD/ ER Physician: Jayme Jacobson MD Procedure: Upper GI endoscopy Indications: Abdominal pain in the right upper quadrant Providers: Jayme Jacobson MD Referring MD: Austin Johnson Medicines: Propofol per Anesthesia Complications: No immediate complications. Estimated blood loss: Minimal. Description of Procedure: After obtaining informed consent, the endoscope was passed under direct vision. Throughout the procedure, the patient's blood pressure, pulse, and oxygen saturations were monitored continuously. The Endoscope was intro duced through the mouth, and advanced to the third part of duodenum. The uppe r GI endoscopy was accomplished without difficulty. The patient tolerated th e procedure well. Findings: The examined esophagus was normal. Diffuse mildly erythematous mucosa without bleeding was found at the incisura and in the gastric antrum. Biopsies were taken with a cold for ceps for histology. Estimated blood loss was minimal. Scattered moderate inflammation characterized by erythema, friability a nd shallow ulcerations was found in the duodenal bulb. Biopsies were taken with a cold forceps for histology. Estimated blood loss was minimal. Scattered mild inflammation characterized by erythema and shallow ulcerations was found in the second portion of the duodenum and in the third portion of the duodenum. Biopsies were taken with a cold forceps for histology. Estimated blood loss was minimal. The exam was otherwise without abnormality. Estimated Blood Loss: Estimated blood loss was minimal. Post Op Diagnosis: - Normal esophagus. - Erythematous mucosa in the incisura and antrum. Biopsied. - Mucosal changes suspicious for acute duodenitis. Biopsied. - Mucosal changes suspicious for acute duodenitis. Biopsied. - The examination was otherwise normal. Recommendation: - Await pathology results. - My office will call with the pathology result with 5-7 days. If you h ave not heard from my office by 12-14, do not assume the pathology is derik l, please call [phone] to get the pathology results. - Use Protonix (pantoprazole) 40 mg PO BID. - No aspirin, ibuprofen, naproxen, or other non-steroidal anti-inflamma tory drugs for now given duodenitis noted. I stopped her Toradol - Check ttg and serum IgA total and check Hep C viral load given hx of Hepatitis C and presumed celiac disease by laboratory studies and respo nse to gluten free diet. - Advance diet as tolerated. - Return patient to [facility] for ongoing care. - Thank you for allowing me to help in your patient's care. Do not hesi hoang to call with any questions. Attending Participation: I personally performed the entire procedure. Kavon Stroud M.D Jayme Jacobson MD 02/20/2019 12:21:23 PM This report has been signed electronicallyMatthew MD Kavon Number of Addenda: 0 Note Initiated On: 02/20/2019 12:03 PM [email or web address]
[2019-02-20] MEDS ORDERED: fentaNYL 100 MCG/2 ML INJ ONE (12:41)
[2019-02-20] MEDS ORDERED: ONDANSETRON 4 MG/2 ML VIAL ONE (12:42)
--- NOTE | 2019-02-20 13:07 | CPEKG ---
Test Reason : OPEN Blood Pressure : / mmHG Vent. Rate : 064 BPM Atrial Rate : 063 BPM P-R Int : 153 ms QRS Dur : 100 ms QT Int : 408 ms P-R-T Axes : 038 052 013 degrees QTc Int : 421 ms Sinus rhythm Borderline T wave abnormalities Confirmed by Layla Talbert ([id number]) on 02/20/2019 1:07:03 PM Referred By: Luis Damico Confirmed By:Layla Talbert
[2019-02-20] MEDS: D5W 1/2 NS W/ 20 KCl/L 1,000 ML IV SCH ×2 (14:25→23:51)
--- NOTE | 2019-02-20 15:12 | ASMTCMCOM ---
CM Note CM Note Notes: Pt had endoscopy today which revealed duodenitis. Pathology pending on biopsy. Pt fell this morning. PT and OT orders placed by CM after fall. D/C Plan TBD. CM to follow. D/C Plan: TBD pending PT/OT eval Date Signed: 02/20/2019 03:11 PM Electronically Signed By:Yaklein Dennis
--- NOTE | 2019-02-20 19:59 | HOSPPROG ---
Hospitalist Progress Note Assessment/Plan: #Epigastric pain: duodenitis on EGD. Protonix BID -biopsies pending #Dizziness: suspect related to Gabapentin. Hold -normal orthostatics #Fibromyalgia: Cymbalta #Diplopia: resolved. Again, related to meds #Celiac: ttg, IgA #SOB: dimer was elevated, negative CTA -Trop x 2 negative, EKG nonischemic -rec outpatient stress #Obesity: counseled on diet and exercise #HCV: PCR pending #Diet: ADAT #Disp: inpatient admission for telemetry Subjective: double vision resolved this afternoon Objective: Vital Signs Temp Pulse Resp BP Pulse Ox 36.7 C 58 L 16 136/104 H 94 02/20/19 19:43 02/20/19 19:43 02/20/19 19:43 02/20/19 19:43 02/20/19 19:43 02/19/19 02/20/19 02/21/19 05:59 05:59 05:59 Intake Total 250 600 500 Output Total 500 705 Balance 250 100 -205 - Time Spent With Patient Time Spent with Patient: greater than 35 minutes Time Spent with Patient: Greater than 35 minutes spent on this patients care, greater than 50% of time spent counseling, educating, and coordinating care regarding the above mentioned plan. - Physical Exam Constitutional: obese Eyes: PERRL Ears, Nose, Mouth, Throat: moist mucous membranes Cardiovascular: regular rate and rhythym Respiratory: no respiratory distress Gastrointestinal: normoactive bowel sounds Skin: warm Musculoskeletal: full muscle strength Neurologic: other (nystagmus) ICD10 Worksheet Patient Problems: Problems Problem Status Onset Colitis Acute
[2019-02-20] MEDS: PANTOPRAZOLE SODIUM 40 MG TAB PO SCH (20:17)
[2019-02-20] MEDS: ACETAMINOPHEN 325 MG TAB PO PRN (23:48)
[2019-02-21 08:03] VITALS: BP 146/89
[2019-02-21] MEDS: PANTOPRAZOLE SODIUM 40 MG TAB PO SCH (08:28)
[2019-02-21] MEDS: D5W 1/2 NS W/ 20 KCl/L 1,000 ML IV SCH (08:32)
[2019-02-21] MEDS: ONDANSETRON DISINTEGRATING 4 MG TAB PO PRN (10:38)
--- NOTE | 2019-02-21 11:12 | SOAPPROG ---
MARIA GUADALUPE Progress Note Assessment/Plan: Assessment:Plan: 1) RUQ pain - prob from her duodenitis seen on EGD, slowly improving on PPI BID and off NSAID's 2) Duodenitis - path pending 3) Celiac - by labs and response to diet, will see if any evidence of pathology and labs ttg/serum IgA. If not then she is either Celiac doing well on her diet or gluten sensitivity doing well on her diet which she is happy to stay on lifelong 4) Hx Hep C by report - viral load pending 5) home today 6) f/u - if path show only acute duodenitis and she has complete resolution of sx's on PPI and her celiac labs and Hep C viral load are negative, then she may not need any GI f/u. She will f/u with PCP 02/21/19 11:08 Subjective: CC - RUQ pain pain slightly better with PPI pain worse with po intake wants to go home Objective: Vital Signs Temp Pulse Resp BP Pulse Ox 36.6 C 56 L 16 146/89 H 96 02/21/19 08:02 02/21/19 08:02 02/21/19 08:02 02/21/19 08:02 02/21/19 08:02 02/20/19 02/21/19 02/22/19 05:59 05:59 05:59 Intake Total 600 800 Output Total 500 1205 600 Balance 100 -405 -600 A+Ox3 CTA S1S2 +Bs, soft splitter tender rug and some in epi no rebound ICD10 Worksheet Patient Problems: Problems Problem Status Onset Colitis Acute
--- NOTE | 2019-02-21 12:28 | ASDISCHSUM ---
Discharge Information Plan Status:Home with No Needs Medically Cleared to Leave:02/21/2019 Discharge Date:02/21/2019 CM D/C Disposition:Home, Routine, Self-Care ADT D/C Disposition:Home, Routine, Self-Care Projected Discharge Date:02/21/2019 Transportation at D/C:Family Discharge Delay Reason: Follow-Up Date:02/21/2019 Discharge Slot: Final Diagnosis: Placement Information Patient Contact Information Contact Name:TJ Relationship: Address:[address] City:[place] Alternate Phone: State/Zip Code:[place] [address] Email: Financial Information Financial Class:Medicaid Primary Plan Desc:[employer] [place] Primary Plan Number:[id number] Secondary Plan Desc: Secondary Plan Number: Assessment Information [facility] CM Progress Note CM Note CM Note Notes: Reviewed chart, pt admitted for abdominal pain. May have C scope tomorrow. Normally independent and lives with , no therapies ordered. Anticipate she will dc home with support of when medically stable. CM available for any changes. DC Plan: Independent Date Signed: 02/18/2019 03:18 PM Electronically Signed By:Nayana Costa RN [facility] CM Progress Note CM Note CM Note Notes: Pt had endoscopy today which revealed duodenitis. Pathology pending on biopsy. Pt fell this morning. PT and OT orders placed by CM after fall. D/C Plan TBD. CM to follow. D/C Plan: TBD pending PT/OT eval Date Signed: 02/20/2019 03:11 PM Electronically Signed By:Yakelin Dennis LACE LACE Length of stay for Answers: 3 days current admission Acuity / Level of Answers: Yes Care: Did the patient have an inpatient admission? Comorbidities - select Answers: Other Notes: Hep C, fibromyalgia all that apply # of Emergency department Answers: 1-2 visits in the last 6 months Score: 8 Date Signed: 02/21/2019 12:23 PM Electronically Signed By:FABIO Torres Case Management Discharge Plan Note Case Management Discharge Discharge Order Complete? Answers: Yes Patient to Obtain Answers: via Family Medications Transportation Arranged Answers: Family/Friends Discharge Comments Notes: Pt has been medically cleared for d/c today. Her is transporting. Family will be there for support. Pt has no CM needs. Date Signed: 02/21/2019 12:24 PM Electronically Signed By:FABIO Torres Intervention Information Intervention Type:*Incorrect Registration Date of Service:02/18/2019 12:10 PM Patient Type:Observation Staff Member:ITZEL Costello Courtney Hours: Discipline: Severity: Comment:
--- NOTE | 2019-02-21 12:33 | GDS ---
[f rep st] DISCHARGE SUMMARY DISCHARGE DIAGNOSES: 1. Epigastric pain secondary to duodenitis. 2. Dizziness/diplopia,related to gabapentin. 3. Fibromyalgia. 4. Diplopia. 5. Celiac disease. 6. Shortness of breath. 7. Obesity. 8. History of hepatitis C. HISTORY OF PRESENT ILLNESS: A 48-year-old female with celiac disease, fibromyalgia, obesity, who presented 02/17 with acute onset of right upper quadrant pain that was burning and radiated to her right shoulder. She was initially admitted to surgery with concern of a large bowel obstruction as a transition point was noted on CT. She underwent a colonoscopy that was negative for mass. I was then consulted. Upon my review of systems, she had epigastric pain and takes 2 Advil every other night for the past 8 weeks. She underwent EGD that demonstrated duodenitis. Biopsies taken. HOSPITAL COURSE BY PROBLEM: 1. Acute duodenitis: from NSAIDs at home or Toradol here.Protonix 40 mg twice daily. Biopsies pending. Follow up with Dr. Jacobson. 2. Dizziness/diplopia: related to gabapentin. This is now resolved. NL orthostatics. She should follow up with her neurologist. 3. Fibromyalgia. Cymbalta. 4. Celiac disease. TTG and IgA pending. 5. Obesity. Counseled on diet and exercise. 6. Hepatitis C: Has not received treatment. RNA PCR is pending. 7. Shortness of breath and intermittent chest pain. D-dimer > 2, negative CTA. Troponin and EKG were nonischemic. Recommend an outpatient cardiac stress test. 8. Borderline hypertension: She reports taking blood pressure 3 times a week with an average of systolics 120s. She has had intermittent elevation here. I recommend she keep a log and followup with her primary care physician. DISPOSITION: Patient is stable for discharge home. NEW MEDICATIONS: 1. Zofran. 2. Protonix. PHYSICAL EXAM: VITAL SIGNS: Today, temperature 36.6, blood pressure 146/89, heart rate in the 50s, respirations 16, 96% on room air. GENERAL: Obese, no acute distress. Sitting up in chair. HEENT: PERRLA. Moist mucous membranes. CV: Regular rate and rhythm. LUNGS: Clear. ABDOMEN: Still with epigastric pain, but much improved. No rebound or guarding. MUSCULOSKELETAL: 5/5 upper and lower extremity strength. NEURO: 2 through 12 intact. PSYCH: Alert and oriented x3. FOLLOWUP: 1. Dr. Jacobson. 2. Neurology. 3. Her PCP. 4. Outpatient cardiac stress test. 5. Monitor blood pressure. TIME SPENT ON DISCHARGE: Greater than 30 minutes at bedside evaluating the patient, counseling on followup plans. /[id number]/MODL MTDD
[2019-02-24 11:06] LABS: HCV QT RNA PCR < 1 IU/mL (<10)
== END 2019-02-21 12:36 | disposition home or self-care (01) | DRG 241 ==
LOC: INTOOBSV 20:55 → F3E 22:59 → OBSVTOIN 02-18 16:08
PROVIDERS: ADMIT Surgery; ATTEND Surgery
DX: K29.80 Duodenitis without bleeding (principal); K29.50 Unspecified chronic gastritis without bleeding; T39.395A Adverse effect of other nonsteroidal anti-inflammatory drugs [NSAID], initial encounter; R42 Dizziness and giddiness; H53.2 Diplopia; T42.6X5A Adverse effect of other antiepileptic and sedative-hypnotic drugs, initial encounter; M79.7 Fibromyalgia; E66.9 Obesity, unspecified; Z68.31 Body mass index [BMI] 31.0-31.9, adult; K90.0 Celiac disease; R03.0 Elevated blood-pressure reading, without diagnosis of hypertension; Z86.19 Personal history of other infectious and parasitic diseases
CPT/HCPCS: 82435-PO; 82565-PO; 82947-PO; 83516-90; 84132-PO; 84295-PO; 84481-90; 84520-PO; 85014-ER; 96365; 97161-GP; 97166-GO; J0696; J1885; J2060; J2250; J2270; J2405; J2550; J2704; J3010; Q9967